=== PATIENT | male | born 1965 | race Caucasian/White ===

== ENCOUNTER 2019-04-04 12:38 | Emergency (ER) | payer BC ==
[~2019-04-04] VITALS: Ht 177.8 cm; Wt 113.4 kg
--- NOTE | 2019-04-04 12:55 | NUR ---
Patient presented to ER with left arm heaviness. Patient A&O, afebrile, skin pink, respirations equal bilat, nausea, denies V/D, no pain. Patient states left arm discomfort started this morning with nausea starting 30 min ago. Patient denies health problems, he just wants to be seen for left arm discomfort.
--- NOTE | 2019-04-04 13:20 | NUR ---
# 18 gauge angiocath placed to left AC. Use of asceptic technique. Opsite placed over site. Blood return noted. Labs not obtained from site, atempted but not obtained. Flushed with 10 cc of normal saline. No evidence of infiltration noted. Patient tolerated well. Called lab to draw labs.
--- NOTE | 2019-04-04 13:20 | NUR ---
ER Dr. De La Torre at bedside examining patient.
--- NOTE | 2019-04-04 13:25 | NUR ---
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
--- NOTE | 2019-04-04 13:35 | NUR ---
ER at bedside discussing treatment with patient.
[2019-04-04 13:45] VITALS: BP_SYST 155
--- NOTE | 2019-04-04 13:45 | NUR ---
Patient does not wish to proceed with medical care recommended by Dr. De La Torre. Patient given information related to possible complications, up to and including , which could occur as a result of leaving hospital at this time. Patient verbalizes understanding of risks involved leaving against medical advice. Patient has signed AMA form. I.V. reomved, stopped bleeding and placed gauze & tape over site.
[2019-04-04] MEDS ORDERED: IOHEXOL 0 ML IV ONE (13:53)
== END 2019-04-04 13:45 | disposition left against medical advice (07) ==
LOC: SED 12:38
DX: M79.602 Pain in left arm (principal); R11.0 Nausea
CPT/HCPCS: 99281; Q9967